=== PATIENT | female | born 1930 | race Caucasian/White ===

== ENCOUNTER 2016-04-10 16:27 | Inpatient (IN) | payer OTHER ==
[~2016-04-10 16:27] MED LIST: CARAFATE1 GM PO; CEFDINIR300 MG PO; CYMBALTA30 MG PO; ELAVIL25 MG PO; FEOSOL325 MG PO; IMODIUM2 MG PO; KEFLEX500 MG PO; LASIX40 MG PO; LIPITOR10 MG PO; LIPITOR20 MG PO; LOPRESSOR25 MG PO; LOPRESSOR50 MG PO; MUCINEX600 MG PO; NORCO 5-325 TA1 EACH PO; NORVASC10 MG PO; PRILOSEC20 MG PO; SYNTHROID125 MCG PO; XARELTO15 MG PO
--- NOTE | 2016-04-14 11:16 | NUR ---
PT. DECLINED INVITATION TO CARE TEAM ANABELL. SHE WAS GOING TO THERAPY. ADVISED PT. THAT A D/C DATE HAD NOT BEEN SET. PT. WAS IN AGREEMENT.
--- NOTE | 2016-04-14 19:54 | NUR ---
PT REPORTS NO BM TIMES 4 DAYS, [place] 8.6MG GIVEN PRN DOSE
--- NOTE | 2016-04-17 21:45 | NUR ---
2100- WHEN TAKING VITALS, O2 NOTED AT 86% ON ROOM AIR. AFTER PT TAKING DEEP BREATHS, O2 INCREASED TO 88%. PATIENT PLACED ON 2LNC. WILL CONT. TO MONITOR.
--- NOTE | 2016-04-21 16:57 | NUR ---
MET WITH PT. DAUGHTER, NANCY PATTERSON, THIS DATE FOR THE CARE TEAM MTG. PT. HAS A ROLLING WALKER, PT. WANTS VNA/CATE FOR PT/OT AND NURSING ASSESSMENT. [facility] TO DELIVER A 3 IN 1. PT. IS ON CHRONIC XARELTO FOR A-FIB. PT. WILL D/C HOME WITH SPOUSE ON 04/24/16.
--- NOTE | 2016-04-24 11:15 | NUR ---
PT. D/C HOME WITH SPOUSE THIS DATE. PT. HAS A ROLLING WALKER. PT. REQUESTES VNA/CATE FOR PT/OT AND NURSING ASSESSMENT. PT. IS ON CHRONIC XARELTO FOR A-FIB. D/C NOTICE AND QUESTIONNAIRE GIVEN.
[2016-05-20] MEDS ORDERED: COLACE100 MG PO (17:32)
[2016-05-20] MEDS ORDERED: LIPITOR 10MG TA10 MG PO (17:32)
[2016-05-20] MEDS ORDERED: CYMBALTA20 MG PO (17:33)
[2016-05-20] MEDS ORDERED: PROLIA60 MG/1 ML IM (17:33)
[2016-05-20] MEDS ORDERED: VITAMIN B-121000 MC1 PO (17:34)
[2016-05-20] MEDS ORDERED: DIGITEK125 MCG PO (17:34)
[2016-05-20] MEDS ORDERED: XOPENEX (11.25 MG/3 INH (17:34)
== END 2016-04-24 11:58 | disposition home health service (06) | DRG 560 ==
LOC: FSNU 16:27
PROVIDERS: ADMIT Internal Medicine
DX: S32.592D Other specified fracture of left pubis, subsequent encounter for fracture with routine healing (principal); N39.0 Urinary tract infection, site not specified; I48.91 Unspecified atrial fibrillation; I10 Essential (primary) hypertension; Z79.01 Long term (current) use of anticoagulants; I25.10 Atherosclerotic heart disease of native coronary artery without angina pectoris; E03.9 Hypothyroidism, unspecified; K21.9 Gastro-esophageal reflux disease without esophagitis; S32.512D Fracture of superior rim of left pubis, subsequent encounter for fracture with routine healing; W01.0XXD Fall on same level from slipping, tripping and stumbling without subsequent striking against object, subsequent encounter
CPT/HCPCS: 97110; 97116; 97161; 97167; 97530; 97530-GP; 97535

== ENCOUNTER 2016-05-13 20:26 | Emergency (ER) | payer OTHER ==
[2016-05-20] MEDS ORDERED: COLACE100 MG PO (17:32)
[2016-05-20] MEDS ORDERED: LIPITOR 10MG TA10 MG PO (17:32)
[2016-05-20] MEDS ORDERED: CYMBALTA20 MG PO (17:33)
[2016-05-20] MEDS ORDERED: PROLIA60 MG/1 ML IM (17:33)
[2016-05-20] MEDS ORDERED: VITAMIN B-121000 MC1 PO (17:34)
[2016-05-20] MEDS ORDERED: DIGITEK125 MCG PO (17:34)
[2016-05-20] MEDS ORDERED: XOPENEX (11.25 MG/3 INH (17:34)
== END 2016-05-13 23:55 | disposition home or self-care (01) ==
LOC: FER 20:26
DX: S42.291A Other displaced fracture of upper end of right humerus, initial encounter for closed fracture (principal); Z88.1 Allergy status to other antibiotic agents; W07.XXXA Fall from chair, initial encounter; Y92.009 Unspecified place in unspecified non-institutional (private) residence as the place of occurrence of the external cause
CPT/HCPCS: 71010; 73060; 73130; 73200; J2270